=== PATIENT | female | born 1995 | race Caucasian/White ===

== ENCOUNTER 2019-10-09 21:28 | Emergency (ER) | payer BC ==
--- NOTE | 2019-10-09 23:44 | ER Document Report ---
ED Medical Screen (RME) - General Chief Complaint: Vaginal Bleeding Stated Complaint: BLEEDING/CRAMPING/ Time Seen by Provider: 10/09/19 23:33 Notes: Patient is a 24-year-old female G1, P0 presents emergency department with a chief complaint of vaginal bleeding. Patient reports that she is an estimated 12 weeks . Last menstrual cycle was July 16. Patient reports she originally did follow-up with her primary care physician who did confirm via a urine specimen. Patient reports she has not had any blood work or ultrasound to confirm this. Patient reports that today around 10 AM she started to have vaginal bleeding. Patient reports that it started out as a spotting and now is having small clots. Patient denies any previous vaginal discharge that is different from her normal. Patient reports she is also had some urinary symptoms such as frequency and urgency. Patient denies fever. TRAVEL OUTSIDE OF THE [place] IN LAST 30 DAYS: No - Related Data Allergies/Adverse Reactions: No Known Allergies Allergy (Unverified 10/09/19 23:33) Home Medications: vitamin Past Medical History - Social History Chew tobacco use (# tins/day): No Frequency of alcohol use: None Drug Abuse: None Physical Exam - Vital signs Vitals: Temp Pulse Resp BP Pulse Ox 98.9 F 90 20 125/74 100 10/09/19 21:48 10/09/19 21:48 10/09/19 21:48 10/09/19 21:48 10/09/19 21:48 Course - Re-evaluation Re-evalutation: 10/09/19 23:44 I have greeted and performed a rapid initial assessment of this patient. A comprehensive ED assessment and evaluation of the patient, analysis of test results and completion of the medical decision making process will be conducted by additional ED providers. - Vital Signs Vital signs: Temp Pulse Resp BP Pulse Ox 98.9 F 90 20 125/74 100 10/09/19 21:48 10/09/19 21:48 10/09/19 21:48 10/09/19 21:48 10/09/19 21:48
[2019-10-10 00:21] LABS: APPEARANCE,URINE CLEAR; BILIRUBIN,URINE NEGATIVE (NEGATIVE); COLOR,URINE YELLOW; GLUCOSE, URINE NEGATIVE (NEGATIVE); KETONES,URINE NEGATIVE (NEGATIVE); LEUKOCYTE ESTERASE,URINE NEGATIVE (NEGATIVE); NITRITE,URINE NEGATIVE (NEGATIVE); PROTEIN,URINE NEGATIVE (NEGATIVE); URINE SPECIFIC GRAVITY 1.004; UROBILINOGEN,URINE NEGATIVE mg/dL (<2.0)
[2019-10-10 00:23] LABS: ABSOLUTE BASOPHILS # (AUTO) 0.1 10^3/uL (0.0-0.2); ABSOLUTE EOSINOPHILS # (AUTO) 0.3 10^3/uL (0.0-0.6); ABSOLUTE LYMPHOCYTES (AUTO) 2.5 10^3/uL (0.5-4.7); ABSOLUTE MONOCYTES (AUTO) 0.7 10^3/uL (0.1-1.4); ABSOLUTE NEUT (AUTO) 8.4 10^3/uL (1.7-8.2); BASOPHILS % (AUTO) 0.5 % (0-2); EOSINOPHILS % (AUTO) 2.4 % (0-6); HEMATOCRIT 41.2 % (36.0-47.0); HEMOGLOBIN 13.9 g/dL (12.0-15.5); LYMPHOCYTES % (AUTO) 20.7 % (13-45); MEAN CORPUSCULAR HEMOGLOBIN 30.8 pg (27.0-33.4); MEAN CORPUSCULAR HGB CONC 33.7 g/dL (32.0-36.0); MEAN CORPUSCULAR VOLUME 92 fl (80-97); MONOCYTES % (AUTO) 5.9 % (3-13); PLATELET COUNT 227 10^3/uL (150-450); RED CELL DISTRIBUTION WIDTH 12.9 % (11.5-14.0); SEGMENTED NEUTROPHILS % (AUTO) 70.5 % (42-78); TOTAL CELLS COUNTED % (AUTO) 100 %; WHITE BLOOD COUNT 11.9 10^3/uL (4.0-10.5)
[2019-10-10 00:41] LABS: ALBUMIN 4.3 g/dL (3.5-5.0); ALKALINE PHOSPHATASE 81 U/L (38-126); ANION GAP 12 (5-19); ASPARTATE AMINO TRANSFERASE 33 U/L (14-36); BILIRUBIN,DIRECT 0.2 mg/dL (0.0-0.4); BILIRUBIN,TOTAL 0.3 mg/dL (0.2-1.3); BLOOD UREA NITROGEN 10 mg/dL (7-20); CALCIUM 9.6 mg/dL (8.4-10.2); CARBON DIOXIDE 26 mmol/L (22-30); CHLORIDE 101 mmol/L (98-107); GLUCOSE 96 mg/dL (75-110); POTASSIUM 3.7 mmol/L (3.6-5.0); TOTAL PROTEIN 7.5 g/dL (6.3-8.2)
--- NOTE | 2019-10-10 01:23 | RADIOLOGY REPORT (SQ) ---
EXAM DESCRIPTION: CLINICAL HISTORY: 24 years Female VAGINAL BLEEDING WITH COMPARISON: None. TECHNIQUE: Transvaginal duplex imaging performed to evaluate the pelvis. FINDINGS: Uterus is normal in size. Intrauterine gestational sac. Cervix measures 3.1 cm. There is a small amount of fluid in the endocervical canal. The right ovary measures 2.3 x 1.7 cm with normal blood flow. Left ovary measures 1.7 x 1.3 cm with normal flow. Small amount of subchronic hemorrhage is noted. Question 2 mm pole. No heart tones are noted. The gestational sac measures 2.5 cm corresponding to seven weeks four days. The probable pole measures 3 mm corresponding with five weeks six days. IMPRESSION: Intrauterine gestation corresponding to approximately six weeks four days. No heart tones are noted which may be due to early gestational age. However, gestational sac is disproportionately large as compared to the pole. Findings are consistent with of uncertain viability. Recommend follow-up in one week
--- NOTE | 2019-10-10 03:56 | ER Document Report ---
ED GI/ - General Chief Complaint: Vaginal Bleeding Stated Complaint: BLEEDING/CRAMPING/ Time Seen by Provider: 10/09/19 23:33 Mode of Arrival: Ambulatory Information source: Patient Notes: 24-year-old female presented to ED for complaint of vaginal bleeding during . She is 1 para 0. She states she is estimated 12 weeks her last menstrual cycle was July 16. She states she did go to her primary care doctor where they did a urine which was positive. She states she has not had any blood work or ultrasound before this. She did come to the emergency room where blood work urine and ultrasound were completed. These results have been discussed with the patient and her significant other. TRAVEL OUTSIDE OF THE [place] IN LAST 30 DAYS: No - Related Data Allergies/Adverse Reactions: No Known Allergies Allergy (Verified 10/10/19 00:19) Home Medications: vitamin Past Medical History - General Information source: Patient Last Menstrual Period: 07/16/2019 - Social History Smoking Status: Former Smoker Chew tobacco use (# tins/day): No Frequency of alcohol use: None Drug Abuse: None Occupation: None Lives with: Spouse/Significant other Family History: COPD Patient has suicidal ideation: No Patient has homicidal ideation: No - Past Medical History Cardiac Medical History: Reports: None, Hx Heart Murmur Pulmonary Medical History: Reports: None EENT Medical History: Reports: None Neurological Medical History: Reports: Hx Migraine, Hx Seizures Endocrine Medical History: Reports: None Renal/ Medical History: Reports: Hx Ovarian Cysts - PCOS Malignancy Medical History: Reports: None GI Medical History: Reports: None Musculoskeletal Medical History: Reports None Skin Medical History: Reports None Psychiatric Medical History: Reports: Hx Anxiety Traumatic Medical History: Reports: None Infectious Medical History: Reports: None Past Surgical History: Reports: Hx Cardiac Surgery - ASD, Hx Genitourinary Surgery - Swapping of the ureter, Hx Urinary Tract Surgery - ureter Review of Systems - Review of Systems Constitutional: No symptoms reported EENT: No symptoms reported Cardiovascular: No symptoms reported Respiratory: No symptoms reported Gastrointestinal: No symptoms reported Genitourinary: No symptoms reported Female Genitourinary: Vaginal bleeding, Other - Pelvic cramping Musculoskeletal: No symptoms reported Skin: No symptoms reported Hematologic/Lymphatic: No symptoms reported Neurological/Psychological: No symptoms reported -: Yes All other systems reviewed and negative Physical Exam - Vital signs Vitals: Temp Pulse Resp BP Pulse Ox 98.9 F 90 20 125/74 100 10/09/19 21:48 10/09/19 21:48 10/09/19 21:48 10/09/19 21:48 10/09/19 21:48 Interpretation: Normal - General General appearance: Appears well, Alert - HEENT Head: Normocephalic, Atraumatic Eyes: Normal Pupils: PERRL - Respiratory Respiratory status: No respiratory distress Chest status: Nontender Breath sounds: Normal Chest palpation: Normal - Cardiovascular Rhythm: Regular Heart sounds: Normal auscultation Murmur: No - Abdominal Inspection: Normal Distension: No distension Bowel sounds: Normal Tenderness: Nontender Organomegaly: No organomegaly - Back Back: Normal, Nontender - Extremities General upper extremity: Normal inspection, Nontender, Normal color, Normal ROM, Normal temperature General lower extremity: Normal inspection, Nontender, Normal color, Normal ROM, Normal temperature, Normal weight bearing. No: Siva's sign - Neurological Neuro grossly intact: Yes Cognition: Normal Orientation: AAOx4 [place] Coma Scale Eye Opening: Spontaneous [place] Coma Scale Verbal: Oriented [place] Coma Scale Motor: Obeys Commands [place] Coma Scale Total: 15 Speech: Normal Motor strength normal: LUE, RUE, LLE, RLE Sensory: Normal - Psychological Associated symptoms: Normal affect, Normal mood - Skin Skin Temperature: Warm Skin Moisture: Dry Skin Color: Normal Course - Re-evaluation Re-evalutation: 10/10/19 08:26 Patient was informed that there was no heartbeat on the ultrasound. It did show that the baby's size was about 5 weeks and she thought she was 12 weeks and the hCG was in the 500s. Patient was given a lab slip for repeat of hCG instructed to follow-up with primary care and/or HOME ENERGY CONSULTANT. Patient verbalized understanding and agreement with treatment plan - Vital Signs Vital signs: Temp Pulse Resp BP Pulse Ox 98.3 F 80 20 115/70 98 10/10/19 04:44 10/10/19 04:44 10/10/19 04:44 10/10/19 04:44 10/10/19 04:44 - Laboratory Result Diagrams: 10/10/19 00:10 10/10/19 00:10 Laboratory results interpreted by me: 10/09/19 10/10/19 10/10/19 23:57 00:10 00:10 WBC 11.9 H Absolute Neuts (auto) 8.4 H Beta HCG, Quant 574.85 H Urine Blood MODERATE H Urine HCG, Qual POSITIVE H - Diagnostic Test Radiology reviewed: Image reviewed, Reports reviewed Discharge - Discharge Clinical Impression: Vaginal bleeding affecting early Condition: Stable Disposition: HOME, SELF-CARE Additional Instructions: : You are . care is best started as early in as possible. If you're unsure about continuing this , you should discuss this with your physician or with cash on delivery clerk at [facility]. You should take only medications approved by your physician. Acetaminophen can safely be taken for minor pains. As a rule, medication for chronic conditions such as asthma or seizures can safely be continued. You should discuss with the physician every medicine you take. Any regular exercise program can be continued. Talk to your physician, however, before engaging in competitive or demanding sports. Alcohol, smoking, and "street drugs" are dangerous to your baby. Cocaine is especially dangerous. Don't use any illicit drugs! BLEEDING DURING EARLY : You have been evaluated for passing blood while . While we take this symptom very seriously, most women with your degree of bleeding will go on to have a perfectly normal baby. At this time, there is no indication that a miscarriage will occur. (A miscarriage occurs when the fetus is abnormal. There is no medicine or treatment to prevent it.) A more serious cause of bleeding is tubal (or ectopic) . An ultrasound usually can show whether the is in the uterus or in the tube. Sometimes in early , no fetus is seen. In this case, careful follow-up, including repeat blood tests and repeat ultrasound, is necessary. Do not douche or have sex for at least a week, or until OK'd by the doctor. Don't use tampons. Call the doctor or return for re-examination if there is an increase in bleeding or cramping, extreme weakness, fainting, new abdominal pain, fever, or passage of tissue. REPEAT BLOOD TEST: At this time, it is uncertain if you have a viable . During the first three months of , the hormone produced from the placenta will steadily rise, usually doubling in value every 2 - 3 days. In order to determine if your is viable and likely be succesful, a repeat of this blood test for the hormone is recommended in 2 - 3 days. An order for this test to be done as an outpatient is being provided. After you have this repeat test done, call your doctor or call us for the results. If the value of the test is increasing as would be expected in a normal , then your is likely to be ok. However, if the value of the test is declining, it will suggest something has happened with your and it will not likely be a successful . FOLLOW-UP CARE: If you have been referred to a physician for follow-up care, call the physicians office for an appointment as you were instructed or within the next two days. If you experience worsening or a significant change in your symptoms (very heavy bleeding with large clots of blood, passage of tissue, more severe abdominal / pelvic pain or cramping, feeling faint or severe weakness, fever, etc.), notify the physician immediately or return to the Emergency Department at any time for re-evaluation. OBSTETRIC-GYNECOLOGIC (OB-[facility]) PHYSICIANS IN [place]: [facility] [address] [place] [address] [phone] Forms: Follow-Up Laboratory Testing
[2019-10-10 04:45] VITALS: BP 115/70
== END 2019-10-10 04:44 | disposition home or self-care (01) ==
LOC: ER 21:28
DX: O46.91 Antepartum hemorrhage, unspecified, first trimester (principal); Z3A.12 12 weeks gestation of pregnancy; Z87.891 Personal history of nicotine dependence
CPT/HCPCS: 36415; 76817; 80053; 81001; 81025; 84702; 85025; 86900; 86901; 93976; 99284

== ENCOUNTER → 2019-10-12 | Outpatient (CLI) | payer BC | LOC: OD 13:52 | PROVIDERS: ATTEND Nurse Practitioner Family | DX: O20.9 Hemorrhage in early pregnancy, unspecified (principal) | CPT/HCPCS: 36415; 84702 ==

== ENCOUNTER → 2020-08-03 | Outpatient (CLI) | payer SELFPAY ==
--- NOTE | 2020-08-03 14:00 | RADIOLOGY REPORT (SQ) ---
EXAM DESCRIPTION: U/S TR9IXTY TRNABD 1GES W/ODOP IMAGES COMPLETED DATE/TIME: 08/03/2020 1:18 pm REASON FOR STUDY: ENCOUNTER FOR SUPERVISION OF OTHER NORMAL , FIRST TRIMESTER Z34.81 ENCOU NTER FOR SUPRVSN OF NORMAL , FIRST TRIM COMPARISON: None. TECHNIQUE: Transabdominal static and realtime grayscale images acquired of the pelvis. Additional se lected spectral and color Doppler images recorded. All images stored on PACs. bHCG: Unknown CLINICAL DATES: LMP 05/26/2029 weeks 6 days LIMITATIONS: None. FINDINGS: FETUS: Single Living intrauterine . ULTRASOUND EGA: 8 weeks 4 days ULTRASOUND [place]IO: 03/11/2021 EFW: Not applicable less than 20 weeks. CRL: 2 cm FHR: 165 beats per minute. SURVEY: Too early to assess. AMNIOTIC FLUID: Adequate amount. PLACENTA: Not yet developed due to early gestation. SUBCHORIONIC BLEED: No SIZE OF BLEED: Not applicable. UTERUS: No masses. No anomalies. CERVICAL LENGTH: 2.4 cm. Closed. RIGHT ADNEXA: 2 cm corpus luteum. Ovary is otherwise normal. Normal vascular flow. No adnexal free fluid. No adnexal masses. LEFT ADNEXA: Normal ovary with normal vascular flow. No adnexal free fluid. No adnexal masses. FREE FLUID: None. OTHER: No other significant finding. IMPRESSION: LIVING INTRAUTERINE . EGA 8 weeks 4 days. Trimester of : First trimester - 0 to 13 weeks. TECHNICAL DOCUMENTATION: JOB ID: [id number] 2010 [employer]- All Rights Reserved rev Reading location - IP/workstation name: [email or web address]
== END ==
LOC: RAD 12:46
PROVIDERS: ATTEND Midwife
DX: Z34.81 Encounter for supervision of other normal pregnancy, first trimester (principal); Z3A.08 8 weeks gestation of pregnancy
CPT/HCPCS: 76801